=== PATIENT | female | born 1990 | race Hispanic/Latino ===

== ENCOUNTER 2025-04-18 01:20 | Emergency (ER) | payer OTHER ==
[~2025-04-18] VITALS: Ht 162.6 cm; Wt 69.4 kg
[2025-04-18 01:25] VITALS: PULSE 66; RESP 19; TEMP 96.7
[2025-04-18] MEDS ORDERED: SODIUM CHLORIDE FLUSH 10 ML SYR IV PRN (01:45)
[2025-04-18 01:56] LABS: BASOPHILS % 0.4 % (0.0-1.0); EOSINOPHILS % 1.0 % (0.0-6.0); LYMPHOCYTES % 50.1 % (18.0-39.1); MONOCYTES % 5.0 % (4.4-11.3); NEUTROPHILS % 43.4 % (38.7-80.0); RED CELL DISTRIBUTION WIDTH 16.4 % (11.7-14.4)
[2025-04-18 01:58] LABS: LEUKOCYTE ESTERASE ,URINE NEGATIVE (NEGATIVE); PROTEIN,URINE DIPSTICK TRACE (NEGATIVE); URINE UROBILINOGEN 1 mg/dL (0.2 - 1)
[2025-04-18 02:00] LABS: PREGNANCY TEST, URINE NEGATIVE (NEGATIVE)
[2025-04-18] MEDS: ONDANSETRON HCL INJ 2MG/ML 2ML 2 MG/ML VIAL IV STA (02:04)
[2025-04-18 02:19] LABS: EST GLOMERULAR FILTRATION RATE 110.0 ML/MIN (>=60)
[2025-04-18] MEDS: BELLADONNA ALK/PHENOBARBITAL 5 ML UDC PO ONE (02:59)
[2025-04-18] MEDS: MAGNESIUM/ALUMINUM/SIMETHICONE 30 ML UDC PO ONE (02:59)
[2025-04-18] MEDS: LIDOCAINE VISC 2% SOLN 15 ML UDC PO ONE (02:59)
[2025-04-18 03:58] VITALS: BP 100/63; PULSE 68; RESP 17; TEMP 98.1; O2SAT 97
[2025-04-18] MEDS ORDERED: PANTOPRAZOLE SO40 MG PO (04:05)
[2025-04-18] MEDS ORDERED: ONDANSETRON ODT4 MG SL (04:05)
== END 2025-04-18 04:12 | disposition home or self-care (01) ==
LOC: ER 02:46
DX: R10.13 Epigastric pain (principal); K29.70 Gastritis, unspecified, without bleeding; R11.2 Nausea with vomiting, unspecified; Q21.10 Atrial septal defect, unspecified; Q21.0 Ventricular septal defect; Z86.73 Personal history of transient ischemic attack (TIA), and cerebral infarction without residual deficits; F17.210 Nicotine dependence, cigarettes, uncomplicated
CPT/HCPCS: 36415; 80053; 81001; 81025; 83690; 84484; 85025; 93005; 99284; J2405; J2470